=== PATIENT | female | born 1990 | race Caucasian/White ===

== ENCOUNTER 2020-04-21 15:29 | Emergency (ER) | payer MEDICAID, SELFPAY ==
[2020-04-21 16:15] VITALS: BP_SYST 128
--- NOTE | 2020-04-21 16:18 | NUR ---
Patient triaged and placed in tent . VSS and patient appears in no acute distress at this time. Accompanied by family , awaiting available bed, and MD notified of need for MSE.
--- NOTE | 2020-04-21 16:19 | NUR ---
Patient came from home for evaluation of cough and fever x2 days. Vital signs are WNL.
--- NOTE | 2020-04-21 17:30 | NUR ---
Patient left without being seen.
--- NOTE | 2020-04-21 17:30 | NUR ---
Jailyn skinner in [facility] - 04/21/20 at 1804 by KHANG Patient left without being seen.
== END 2020-04-21 17:30 | disposition left against medical advice (07) ==
LOC: SED 15:29
DX: R05 Cough (principal); R50.9 Fever, unspecified; Z53.21 Procedure and treatment not carried out due to patient leaving prior to being seen by health care provider